=== PATIENT | male | born 1950 | race Caucasian/White ===

== ENCOUNTER 2024-12-11 15:04 | Outpatient (CLI) | payer MEDICARE, BC, SELFPAY ==
[2024-12-11 11:17] LABS: Abs Immature Grans 0.05 10^3/uL (0.0-0.06); HCT 35.9 % (40.0-50.0); HGB 11.6 g/dL (13.5-17.5); Immature Grans % 0.8 %; MCH 28.4 pg (27.0-33.0); MCHC 32.3 % (32.0-36.0); MCV 88 fL (80-95); MPV 9.3 fL (8.0-11.0); Platelet Count 277 10^3/uL (130-400); RBC 4.09 10^6/uL (4.36-5.78); RDW 13.2 % (11.8-14.1); RDW-SD 42.3 fL; WBC 6.10 10^3/uL (4.4-10.8)
[2024-12-11 11:54] LABS: ALT 18 U/L (16-63); AST 12 U/L (15-37); Albumin 3.5 g/dL (3.4-5.0); Alkaline Phosphatase 98 U/L (46-116); Anion Gap 9.0 mmol/L (3-11); BUN 18 mg/dL (7-18); Bilirubin, Total 0.2 mg/dL (0.2-1.0); CO2 27.0 mmol/L (21.0-32.0); Calcium 9.7 mg/dL (8.5-10.1); Chloride 98 mmol/L (98-107); Estimated GFR 78.98 (mL/min/1.73m2); Glucose 113 mg/dL (74-106); Magnesium 2.2 mg/dL (1.8-2.4); Potassium 5.0 mmol/L (3.5-5.1); Sodium 134 mmol/L (136-145); Total Protein 7.7 g/dL (6.4-8.2)
== END 2024-12-11 15:05 | disposition home or self-care (01) ==
LOC: LBO 15:05
PROVIDERS: Visit Provider Internal Medicine Medical Oncology
DX: C34.01 Malignant neoplasm of right main bronchus (principal)
CPT/HCPCS: 36415; 80053; 83735; 85025

== ENCOUNTER 2024-12-18 04:47 | Outpatient (CLI) | payer MEDICARE, BC, SELFPAY ==
[2024-12-18 10:54] LABS: Abs Immature Grans 0.03 10^3/uL (0.0-0.06); HCT 32.9 % (40.0-50.0); HGB 11.2 g/dL (13.5-17.5); Immature Grans % 0.9 %; MCH 29.9 pg (27.0-33.0); MCHC 34.0 % (32.0-36.0); MCV 88 fL (80-95); MPV 9.6 fL (8.0-11.0); Platelet Count 213 10^3/uL (130-400); RBC 3.75 10^6/uL (4.36-5.78); RDW 13.2 % (11.8-14.1); RDW-SD 42.1 fL; WBC 3.32 10^3/uL (4.4-10.8)
[2024-12-18 11:16] LABS: ALT 21 U/L (16-63); AST 14 U/L (15-37); Albumin 3.3 g/dL (3.4-5.0); Alkaline Phosphatase 87 U/L (46-116); Anion Gap 8.6 mmol/L (3-11); BUN 20 mg/dL (7-18); Bilirubin, Total 0.3 mg/dL (0.2-1.0); CO2 26.4 mmol/L (21.0-32.0); Calcium 9.4 mg/dL (8.5-10.1); Chloride 98 mmol/L (98-107); Estimated GFR 70.44 (mL/min/1.73m2); Glucose 160 mg/dL (74-106); Magnesium 1.8 mg/dL (1.8-2.4); Potassium 4.9 mmol/L (3.5-5.1); Sodium 133 mmol/L (136-145); Total Protein 6.9 g/dL (6.4-8.2)
== END 2024-12-18 04:48 | disposition home or self-care (01) ==
PROVIDERS: Visit Provider Internal Medicine Medical Oncology
DX: C34.01 Malignant neoplasm of right main bronchus (principal)
CPT/HCPCS: 36415; 80053; 83735; 85025

== ENCOUNTER 2024-12-26 15:58 | Outpatient (CLI) | payer MEDICARE, BC, SELFPAY ==
[2024-12-26 10:46] LABS: Abs Immature Grans 0.03 10^3/uL (0.0-0.06); HCT 30.6 % (40.0-50.0); HGB 10.3 g/dL (13.5-17.5); Immature Grans % 1.3 %; MCH 29.9 pg (27.0-33.0); MCHC 33.7 % (32.0-36.0); MCV 89 fL (80-95); MPV 9.6 fL (8.0-11.0); Platelet Count 173 10^3/uL (130-400); RBC 3.45 10^6/uL (4.36-5.78); RDW 13.3 % (11.8-14.1); RDW-SD 42.5 fL; WBC 2.30 10^3/uL (4.4-10.8)
[2024-12-26 11:11] LABS: ALT 22 U/L (16-63); AST 13 U/L (15-37); Albumin 3.1 g/dL (3.4-5.0); Alkaline Phosphatase 86 U/L (46-116); Anion Gap 8.2 mmol/L (3-11); BUN 22 mg/dL (7-18); Bilirubin, Total 0.2 mg/dL (0.2-1.0); CO2 24.8 mmol/L (21.0-32.0); Calcium 9.0 mg/dL (8.5-10.1); Chloride 99 mmol/L (98-107); Estimated GFR 89.62 (mL/min/1.73m2); Glucose 193 mg/dL (74-106); Magnesium 1.9 mg/dL (1.8-2.4); Potassium 4.6 mmol/L (3.5-5.1); Sodium 132 mmol/L (136-145); Total Protein 7.1 g/dL (6.4-8.2)
== END 2024-12-26 15:59 | disposition home or self-care (01) ==
LOC: LBO 15:58
PROVIDERS: Visit Provider Internal Medicine Medical Oncology
DX: C34.01 Malignant neoplasm of right main bronchus (principal)
CPT/HCPCS: 36415; 80053; 83735; 85025

== ENCOUNTER 2025-01-01 17:46 | Outpatient (CLI) | payer MEDICARE, BC, SELFPAY ==
[2025-01-01 11:40] LABS: Abs Immature Grans 0.04 10^3/uL (0.0-0.06); HCT 31.3 % (40.0-50.0); HGB 10.6 g/dL (13.5-17.5); Immature Grans % 1.2 %; MCH 30.0 pg (27.0-33.0); MCHC 33.9 % (32.0-36.0); MCV 89 fL (80-95); MPV 9.4 fL (8.0-11.0); Platelet Count 129 10^3/uL (130-400); RBC 3.53 10^6/uL (4.36-5.78); RDW 13.8 % (11.8-14.1); RDW-SD 42.3 fL; WBC 3.21 10^3/uL (4.4-10.8)
[2025-01-01 11:50] LABS: ALT 23 U/L (16-63); AST 16 U/L (15-37); Albumin 3.4 g/dL (3.4-5.0); Alkaline Phosphatase 97 U/L (46-116); Anion Gap 9.0 mmol/L (3-11); BUN 23 mg/dL (7-18); Bilirubin, Total 0.4 mg/dL (0.2-1.0); CO2 26.0 mmol/L (21.0-32.0); Calcium 9.2 mg/dL (8.5-10.1); Chloride 98 mmol/L (98-107); Estimated GFR 78.98 (mL/min/1.73m2); Glucose 196 mg/dL (74-106); Magnesium 1.9 mg/dL (1.8-2.4); Potassium 4.2 mmol/L (3.5-5.1); Sodium 133 mmol/L (136-145); Total Protein 7.4 g/dL (6.4-8.2)
== END 2025-01-01 17:47 | disposition home or self-care (01) ==
LOC: LBO 17:46
PROVIDERS: Visit Provider Internal Medicine Medical Oncology
DX: C34.01 Malignant neoplasm of right main bronchus (principal)
CPT/HCPCS: 36415; 80053; 83735; 85025

== ENCOUNTER 2025-01-08 01:44 | Outpatient (CLI) | payer MEDICARE, BC, SELFPAY ==
[2025-01-08 08:44] LABS: Abs Immature Grans 0.03 10^3/uL (0.0-0.06); HCT 26.9 % (40.0-50.0); HGB 9.1 g/dL (13.5-17.5); Immature Grans % 1.1 %; MCH 30.1 pg (27.0-33.0); MCHC 33.8 % (32.0-36.0); MCV 89 fL (80-95); MPV 9.5 fL (8.0-11.0); RBC 3.02 10^6/uL (4.36-5.78); RDW 13.9 % (11.8-14.1); RDW-SD 42.8 fL; WBC 2.75 10^3/uL (4.4-10.8)
[2025-01-08 09:11] LABS: ALT 22 U/L (16-63); AST 12 U/L (15-37); Albumin 3.1 g/dL (3.4-5.0); Alkaline Phosphatase 90 U/L (46-116); Anion Gap 7.9 mmol/L (3-11); BUN 13 mg/dL (7-18); Bilirubin, Total 0.3 mg/dL (0.2-1.0); CO2 27.1 mmol/L (21.0-32.0); Calcium 8.7 mg/dL (8.5-10.1); Chloride 100 mmol/L (98-107); Estimated GFR 78.98 (mL/min/1.73m2); Glucose 212 mg/dL (74-106); Magnesium 1.6 mg/dL (1.8-2.4); Potassium 4.3 mmol/L (3.5-5.1); Sodium 135 mmol/L (136-145); Total Protein 6.6 g/dL (6.4-8.2)
[2025-01-08 09:16] LABS: Platelet Count 74 10^3/uL (130-400)
== END 2025-01-08 01:45 | disposition home or self-care (01) ==
LOC: LBO 01:44
PROVIDERS: Visit Provider Internal Medicine Medical Oncology
DX: C34.01 Malignant neoplasm of right main bronchus (principal)
CPT/HCPCS: 36415; 80053; 83735; 85025

== ENCOUNTER 2025-01-15 07:30 | Outpatient (CLI) | payer MEDICARE, BC, SELFPAY ==
[2025-01-15 11:15] LABS: Abs Immature Grans 0.02 10^3/uL (0.0-0.06); HCT 26.9 % (40.0-50.0); HGB 9.1 g/dL (13.5-17.5); Immature Grans % 0.8 %; MCH 30.6 pg (27.0-33.0); MCHC 33.8 % (32.0-36.0); MCV 91 fL (80-95); MPV 9.6 fL (8.0-11.0); RBC 2.97 10^6/uL (4.36-5.78); RDW 16.4 % (11.8-14.1); RDW-SD 45.6 fL; WBC 2.46 10^3/uL (4.4-10.8)
[2025-01-15 11:33] LABS: Platelet Count 47 10^3/uL (130-400)
[2025-01-15 11:34] LABS: ALT 23 U/L (16-63); AST 15 U/L (15-37); Albumin 3.4 g/dL (3.4-5.0); Alkaline Phosphatase 107 U/L (46-116); Anion Gap 7.6 mmol/L (3-11); BUN 15 mg/dL (7-18); Bilirubin, Total 0.3 mg/dL (0.2-1.0); CO2 26.4 mmol/L (21.0-32.0); Calcium 9.2 mg/dL (8.5-10.1); Chloride 100 mmol/L (98-107); Estimated GFR 78.98 (mL/min/1.73m2); Glucose 150 mg/dL (74-106); Magnesium 2.0 mg/dL (1.8-2.4); Potassium 4.4 mmol/L (3.5-5.1); Sodium 134 mmol/L (136-145); Total Protein 7.2 g/dL (6.4-8.2)
== END 2025-01-15 07:31 | disposition home or self-care (01) ==
LOC: LBO 07:30
PROVIDERS: Visit Provider Internal Medicine Medical Oncology
DX: C34.01 Malignant neoplasm of right main bronchus (principal)
CPT/HCPCS: 36415; 80053; 83735; 85025

== ENCOUNTER 2025-01-26 10:00 | Outpatient (CLI) | payer MEDICARE, BC, SELFPAY ==
[2025-01-26 10:24] LABS: Abs Immature Grans 0.02 10^3/uL (0.0-0.06); HCT 28.2 % (40.0-50.0); HGB 9.6 g/dL (13.5-17.5); Immature Grans % 0.6 %; MCH 30.5 pg (27.0-33.0); MCHC 34.0 % (32.0-36.0); MCV 90 fL (80-95); MPV 10.8 fL (8.0-11.0); RBC 3.15 10^6/uL (4.36-5.78); RDW 16.3 % (11.8-14.1); RDW-SD 47.2 fL; WBC 3.15 10^3/uL (4.4-10.8)
[2025-01-26 10:39] LABS: ALT 19 U/L (16-63); AST 14 U/L (15-37); Albumin 2.8 g/dL (3.4-5.0); Alkaline Phosphatase 97 U/L (46-116); Anion Gap 8.5 mmol/L (3-11); BUN 12 mg/dL (7-18); Bilirubin, Total 0.5 mg/dL (0.2-1.0); CO2 27.5 mmol/L (21.0-32.0); Calcium 8.5 mg/dL (8.5-10.1); Chloride 102 mmol/L (98-107); Estimated GFR 89.62 (mL/min/1.73m2); Glucose 171 mg/dL (74-106); Magnesium 1.7 mg/dL (1.8-2.4); Platelet Count 38 10^3/uL (130-400); Potassium 3.9 mmol/L (3.5-5.1); Sodium 138 mmol/L (136-145); Total Protein 6.4 g/dL (6.4-8.2)
== END 2025-01-26 10:01 | disposition home or self-care (01) ==
LOC: LBO 10:01
PROVIDERS: Visit Provider Internal Medicine Medical Oncology
DX: C34.01 Malignant neoplasm of right main bronchus (principal)
CPT/HCPCS: 36415; 80053; 83735; 85025

== ENCOUNTER 2025-01-29 03:45 | Outpatient (CLI) | payer MEDICARE, BC, SELFPAY ==
[2025-01-29 11:13] LABS: Abs Immature Grans 0.01 10^3/uL (0.0-0.06); HCT 28.7 % (40.0-50.0); HGB 9.7 g/dL (13.5-17.5); Immature Grans % 0.3 %; MCH 30.7 pg (27.0-33.0); MCHC 33.8 % (32.0-36.0); MCV 91 fL (80-95); MPV 10.0 fL (8.0-11.0); RBC 3.16 10^6/uL (4.36-5.78); RDW 16.1 % (11.8-14.1); RDW-SD 50.8 fL; WBC 3.20 10^3/uL (4.4-10.8)
[2025-01-29 11:29] LABS: ALT 17 U/L (16-63); AST 12 U/L (15-37); Albumin 3.1 g/dL (3.4-5.0); Alkaline Phosphatase 102 U/L (46-116); Anion Gap 7.7 mmol/L (3-11); BUN 20 mg/dL (7-18); Bilirubin, Total 0.4 mg/dL (0.2-1.0); CO2 27.3 mmol/L (21.0-32.0); Calcium 9.0 mg/dL (8.5-10.1); Chloride 103 mmol/L (98-107); Estimated GFR 89.62 (mL/min/1.73m2); Glucose 143 mg/dL (74-106); Magnesium 1.9 mg/dL (1.8-2.4); Platelet Count 37 10^3/uL (130-400); Potassium 4.2 mmol/L (3.5-5.1); RBC Morphology Normal; Sodium 138 mmol/L (136-145); Total Protein 6.8 g/dL (6.4-8.2)
== END 2025-01-29 03:46 | disposition home or self-care (01) ==
PROVIDERS: Visit Provider Internal Medicine Medical Oncology
DX: C34.01 Malignant neoplasm of right main bronchus (principal)
CPT/HCPCS: 36415; 80053; 83735; 85025

== ENCOUNTER 2025-02-06 02:18 | Outpatient (CLI) | payer MEDICARE, BC, SELFPAY ==
--- NOTE | 2025-02-06 | DI.CT_ITS ---
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 Computer aided detection (CAD) was utilized. CONTRAST MATERIAL: Intravenous: Omnipaque 350 Contrast volume:structured data ml. COMPARISON: CT CT RAD ONC CHEST INTER from 11/29/2024. Radiation treatment planning CT. Other imaging not available. FINDINGS: Pulmonary parenchyma: There is a small amount of soft tissue density noted around the anterior left hilum. No significant bronchial narrowing. Stable emphysematous changes greater in the upper lobes and posterior lower lobes. Stable areas of scarring in the medial aspects of the lower lobes adjacent prominent osteophytes in the thoracic spine. Tracheobronchial tree: The previously noted area of narrowing of the right main bronchus is no longer visible. no bronchiectasis or mucous plugging. Mediastinum and Rosalind: Abnormal soft tissue density noted in the anterior mediastinum, increasing when compared with the previous exam. Pleura: No effusion. No pneumothorax. Heart: The heart is not dilated. Moderate coronary artery calcifications are seen. Stable trace anterior pericardial effusion. Aorta: Thoracic aorta measures 3.9 cm. Moderate atherosclerotic changes. Pulmonary arteries: No gross evidence of emboli. Upper abdomen: No acute findings. Cholecystectomy. Bones: Multiple mild midthoracic compression fractures.Degenerative changes in the spine. No lytic or blastic lesions. Soft tissues: Unremarkable. IMPRESSION: Significant improvement in mass around the right main bronchus. Minimal residual densities at the anterior left hilum. Mild interval increase in size of anterior mediastinal mass. No new abnormalities. RADIATION DOSE DELIVERED: Total DLP DATA REPOSITORY: All CT scans at this facility are submitted to the National Radiology Data Registry (NRDR) Dose Index Registry (DIR) with the [employer] ([employer]). RADIATION OPTIMIZATION: All CT scans at this facility use at least one of these dose optimization techniques: automated exposure control; mA and/or kV adjustment per patient size (includes targeted exams where dose is matched to clinical indication); or iterative reconstruction.
[2025-02-06] MEDS: Omnipaque 350 MG/ML 500 ML BTL-Imaging package IJ (12:49)
[2025-02-06] MEDS: Normal Saline - Diluent 50 ML VIAL IJ (12:49)
[2025-02-06 13:09] LABS: Abs Immature Grans 0.01 10^3/uL (0.0-0.06); HCT 30.2 % (40.0-50.0); HGB 10.1 g/dL (13.5-17.5); Immature Grans % 0.5 %; MCH 31.0 pg (27.0-33.0); MCHC 33.4 % (32.0-36.0); MCV 93 fL (80-95); MPV 11.2 fL (8.0-11.0); RBC 3.26 10^6/uL (4.36-5.78); RDW 17.2 % (11.8-14.1); RDW-SD 56.8 fL; WBC 2.09 10^3/uL (4.4-10.8)
[2025-02-06 13:12] LABS: Platelet Count 78 10^3/uL (130-400)
[2025-02-06 13:37] LABS: ALT 16 U/L (16-63); AST 13 U/L (15-37); Albumin 3.1 g/dL (3.4-5.0); Alkaline Phosphatase 105 U/L (46-116); Anion Gap 12.8 mmol/L (3-11); BUN 19 mg/dL (7-18); Bilirubin, Total 0.3 mg/dL (0.2-1.0); CO2 25.2 mmol/L (21.0-32.0); Calcium 8.9 mg/dL (8.5-10.1); Chloride 100 mmol/L (98-107); Estimated GFR 70.44 (mL/min/1.73m2); Glucose 195 mg/dL (74-106); Magnesium 1.7 mg/dL (1.8-2.4); Potassium 4.5 mmol/L (3.5-5.1); Sodium 138 mmol/L (136-145); Total Protein 6.9 g/dL (6.4-8.2)
== END 2025-02-06 02:38 ==
LOC: DI 02:18
PROVIDERS: Visit Provider Internal Medicine Medical Oncology
DX: C34.01 Malignant neoplasm of right main bronchus (principal)
CPT/HCPCS: 80053; 71260; 83735; 85025

== ENCOUNTER 2025-02-13 08:52 | Outpatient (CLI) | payer MEDICARE, BC, SELFPAY ==
[2025-02-13 08:58] LABS: Abs Immature Grans 0.03 10^3/uL (0.0-0.06); HCT 31.2 % (40.0-50.0); HGB 10.7 g/dL (13.5-17.5); Immature Grans % 0.9 %; MCH 32.1 pg (27.0-33.0); MCHC 34.3 % (32.0-36.0); MCV 94 fL (80-95); MPV 9.0 fL (8.0-11.0); Platelet Count 111 10^3/uL (130-400); RBC 3.33 10^6/uL (4.36-5.78); RDW 17.8 % (11.8-14.1); RDW-SD 59.7 fL; WBC 3.45 10^3/uL (4.4-10.8)
[2025-02-13 09:19] LABS: ALT 13 U/L (16-63); AST 15 U/L (15-37); Albumin 3.3 g/dL (3.4-5.0); Alkaline Phosphatase 106 U/L (46-116); Anion Gap 9.4 mmol/L (3-11); BUN 16 mg/dL (7-18); Bilirubin, Total 0.3 mg/dL (0.2-1.0); CO2 25.6 mmol/L (21.0-32.0); Calcium 8.9 mg/dL (8.5-10.1); Chloride 100 mmol/L (98-107); Estimated GFR 78.98 (mL/min/1.73m2); Glucose 150 mg/dL (74-106); Magnesium 1.8 mg/dL (1.8-2.4); Potassium 4.3 mmol/L (3.5-5.1); Sodium 135 mmol/L (136-145); Total Protein 7.3 g/dL (6.4-8.2)
[2025-02-13 11:29] LABS: TSH 3.29 uIU/mL (0.36-3.74)
== END 2025-02-13 08:53 | disposition home or self-care (01) ==
LOC: LBO 08:52
PROVIDERS: Nurse Practitioner Family; Visit Provider Internal Medicine Medical Oncology
DX: C34.01 Malignant neoplasm of right main bronchus (principal); Z79.899 Other long term (current) drug therapy
CPT/HCPCS: 36415; 80053; 83735; 84439; 84443; 85025

== ENCOUNTER 2025-03-13 03:36 | Outpatient (CLI) | payer MEDICARE, BC, SELFPAY ==
[2025-03-13 12:55] LABS: Abs Immature Grans 0.03 10^3/uL (0.0-0.06); HCT 28.8 % (40.0-50.0); HGB 9.7 g/dL (13.5-17.5); Immature Grans % 0.6 %; MCH 31.0 pg (27.0-33.0); MCHC 33.7 % (32.0-36.0); MCV 92 fL (80-95); MPV 9.3 fL (8.0-11.0); Platelet Count 137 10^3/uL (130-400); RBC 3.13 10^6/uL (4.36-5.78); RDW 15.9 % (11.8-14.1); RDW-SD 54.0 fL; WBC 5.16 10^3/uL (4.4-10.8)
[2025-03-13 13:12] LABS: Magnesium 1.6 mg/dL (1.6-2.6)
[2025-03-13 13:14] LABS: ALT 9 U/L (10-49); AST 13 U/L (<34); Albumin 4.2 g/dL (3.4-5.0); Alkaline Phosphatase 102 U/L (46-116); Anion Gap 11.2 mmol/L (3-11); BUN 12 mg/dL (9-23); Bilirubin, Total 0.40 mg/dL (0.2-1.2); CO2 23.8 mmol/L (20.0-31.0); Calcium 9.1 mg/dL (8.3-10.6); Chloride 101 mmol/L (98-107); Glucose 148 mg/dL (74-106); Potassium 4.5 mmol/L (3.5-5.1); Sodium 136 mmol/L (136-145); Total Protein 7.1 g/dL (5.7-8.2)
[2025-03-13 13:17] LABS: TSH 1.10 uIU/mL (0.55-4.78)
== END 2025-03-13 03:37 | disposition home or self-care (01) ==
LOC: LBO 03:37
PROVIDERS: Visit Provider Nurse Practitioner Family
DX: Z79.899 Other long term (current) drug therapy (principal); C34.01 Malignant neoplasm of right main bronchus
CPT/HCPCS: 36415; 80053; 83735; 84439; 84443; 85025